=== PATIENT | male | born 1955 | race Caucasian/White ===

== ENCOUNTER 2017-01-29 19:24 | Emergency (ER) | payer MEDICARE, OTHER ==
[2017-01-29] MEDS ORDERED: Cyclobenzaprine 10 MG Tab PO ONE (19:25)
[2017-01-29] MEDS ORDERED: Acetaminophen/HYDROcodone 325-5 MG Tab PO ONE (19:25)
[2017-01-29 19:27] VITALS: BP 122/85
[2017-01-29] MEDS ORDERED: Ketorolac 60 MG/2 ML SDV IM ONE (19:27)
--- NOTE | 2017-01-29 19:37 | EDM.PDOC ---
ED HPI GENERAL MEDICAL PROBLEM - General Chief Complaint: Back Pain or Injury Stated Complaint: back injury from falling on ice Time Seen by Provider: 01/29/17 19:24 Source of Information: Reports: Patient History Limitations: Reports: No Limitations - History of Present Illness INITIAL COMMENTS - FREE TEXT/NARRATIVE: Rajendra is a 62 yo male who presents to the ER with complaints of left sided back spasms after falling. He states around 3:30 this afternoon he slipped on the ice and landed on his back. States he never lost consciousness and was able to get up on his own power. Admits his back started to tighten up and has been trying to ice with minimal to no relief. States he did take two tablets of Tylenol earlier with no relief. Duration: Constant Location: Reports: Back Quality: Reports: Sharp, Stabbing Severity: Mild Improves with: Reports: Rest Worsens with: Reports: Movement Associated Symptoms: Reports: No Other Symptoms Treatments CHEMIST PHYSICAL: Reports: Acetaminophen, Cold Therapy Left Lower Back Pain Score (Numeric/FACES): 10 - Related Data Allergies Allergy/AdvReac Type Severity Reaction Status Date / Time Penicillins Allergy Cannot Verified 01/29/17 19:28 Remember Sulfa (Sulfonamide Allergy Itching Verified 01/29/17 19:28 Antibiotics) Home Meds: Home Meds Albuterol [IJD: Ventolin HFA] 1 - 2 puff INH Q6H PRN 10/02/15 [History] Citalopram [Celexa] 20 mg PO DAILY 10/02/15 [History] Fenofibrate [Fenofibrate] 160 mg PO DAILY 10/02/15 [History] Levothyroxine Sodium 137 mcg PO DAILY 10/02/15 [History] atorvaSTATin Calcium [Atorvastatin Calcium] 40 mg PO DAILY 10/02/15 [History] Past Medical History HEENT History: Reports: None Cardiovascular History: Reports: High Cholesterol, Hypertension Respiratory History: Reports: COPD, SOB Gastrointestinal History: Reports: None Neurological History: Reports: None Psychiatric History: Reports: Anxiety, Depression Endocrine/Metabolic History: Reports: None Hematologic History: Reports: None - Past Surgical History Musculoskeletal Surgical History: Reports: Carpal Tunnel, Shoulder Surgery, Other (See Below) Social & Family History - Tobacco Use Smoking Status *Q: Current Every Day Smoker Years of Tobacco use: 43 Packs/Tins Daily: 2 - Caffeine Use Caffeine Use: Reports: Coffee - Recreational Drug Use Recreational Drug Use: No - Living Situation & Occupation Living situation: Reports: Single Occupation: Disabled ED ROS GENERAL - Review of Systems Review Of Systems: ROS reveals no pertinent complaints other than HPI. Constitutional: Reports: No Symptoms HEENT: Reports: No Symptoms Respiratory: Reports: Other (left posterior rib pain). Denies: Shortness of Breath GI/Abdominal: Reports: No Symptoms : Reports: No Symptoms Musculoskeletal: Reports: Back Pain, Muscle Pain, Muscle Stiffness Neurological: Reports: No Symptoms Psychiatric: Reports: No Symptoms ED EXAM,LOWER BACK PAIN/INJURY - Physical Exam Exam: See Below Exam Limited By: No Limitations General Appearance: Alert, Mild Distress Throat/Mouth: Normal Inspection, Normal Voice, No Airway Compromise Head: Atraumatic, Normocephalic Neck: Normal Inspection, Full Range of Motion Respiratory/Chest: No Respiratory Distress, Lungs Clear, Normal Breath Sounds, No Accessory Muscle Use, Chest Non-Tender Cardiovascular: Regular Rate, Rhythm, No Murmur GI/Abdominal: Normal Bowel Sounds, Soft, Non-Tender, No Organomegaly, No Distention Back Exam: Decreased Range of Motion (d/t discomfort), Muscle Spasm. No: Vertebral Tenderness Extremities: Normal Range of Motion Neurological: Alert, Normal Mood/Affect, Normal Gait, Normal Reflexes, No Motor/ Sensory Deficits Psychiatric: Normal Affect, Normal Mood Skin Exam: Warm, Dry, Intact, Normal Color, No Rash. No: Ecchymosis, Petechiae Course - Vital Signs Last Recorded V/S: Last Vital Signs Temp 97.5 F 01/29/17 19:24 Pulse 72 01/29/17 19:24 Resp 20 01/29/17 19:24 BP 122/85 01/29/17 19:24 Pulse Ox 96 01/29/17 19:24 - Orders/Labs/Meds Orders: Active Orders 24 hr Category Date Time Status Ribs 2V w Chest Lt [CR] Stat Exams 01/29/17 19:28 Ordered Thoracolumbar 2V [CR] Stat Exams 01/29/17 19:28 Ordered Meds: Medications Discontinued Medications Generic Name Dose Route Start Last Admin Trade Name Freq PRN Reason Stop Dose Admin Hydrocodone Bitart/Acetaminophen 2 packet 01/29/17 19:45 Take Home: Acetaminophen/Hydrocod, 2 Tab Pack PO 01/29/17 19:46 ONETIME ONE Cyclobenzaprine HCl 1 packet 01/29/17 19:45 Take Home: Cyclobenzaprine 10 Mg, 4 Tab Pack PO 01/29/17 19:46 ONETIME ONE Ketorolac Tromethamine 60 mg 01/29/17 19:27 01/29/17 19:37 Toradol IM 01/29/17 19:28 60 mg ONETIME ONE Administration Orphenadrine Citrate 60 mg 01/29/17 19:27 01/29/17 19:38 Norflex IM 01/29/17 19:28 60 mg NOW STA Administration Departure - Departure Time of Disposition: 20:17 Disposition: Home, Self-Care 01 Clinical Impression: Back muscle spasm Strain of mid-back Qualifiers: Encounter type: initial encounter Qualified Code(s): S29.012A - Strain of muscle and tendon of back wall of thorax, initial encounter - Discharge Information Instructions: Muscle Cramps and Spasms, [id number], Back Pain, Adult, Easy-to -Read Forms: ED Department Discharge Additional Instructions: 1) X-rays showed no sign of fracture 2) [place] 5/325 - 1 tablet every 6-8 hours as needed for pain, qty of 4 given... need to see primary provider if pain persists 3) Flexeril 10mg - 1 tablet every 8 hours as needed for muscle spasms 4) Advise using ibuprofen for discomfort and only taking [place] for break thru pain/bedtime 5) If any bowel or bladder dysfunction, advise returning to ER immediately or uncontrollable pain 6) Continue to ice, 20 minutes at a time, 4-6 times a day 7) Physical therapy referral for further evaluation and treatment. - Problem List & Annotations (1) Back muscle spasm SNOMED Code(s): 567227825 Code(s): M62.830 - MUSCLE SPASM OF BACK Status: Acute (2) Strain of mid-back SNOMED Code(s): 82892090 Code(s): S29.012A - STRAIN OF MUSCLE AND TENDON OF BACK WALL OF THORAX, INIT Status: Acute Qualifiers: Encounter type: initial encounter Qualified Code(s): S29.012A - Strain of muscle and tendon of back wall of thorax, initial encounter - Problem List Review Problem List Initiated/Reviewed/Updated: Yes - My Orders Last 24 Hours: My Active Orders 01/29/17 19:28 Ribs 2V w Chest Lt [CR] Stat Thoracolumbar 2V [CR] Stat - Assessment/Plan Last 24 Hours: My Active Orders 01/29/17 19:28 Ribs 2V w Chest Lt [CR] Stat Thoracolumbar 2V [CR] Stat
[2017-01-29] MEDS ORDERED: Take Home: Cyclobenzaprine 10 MG Tab, 4 Tab Pack PO ONE (19:45)
[2017-01-29] MEDS ORDERED: Take Home: Acetaminophen/HYDROcodone 325-5 MG, 2 Tab Pack PO ONE (19:45)
== END 2017-01-29 20:27 | disposition home or self-care (01) ==
LOC: CC.ED 19:24
DX: S29.012A Strain of muscle and tendon of back wall of thorax, initial encounter (principal); I10 Essential (primary) hypertension; E78.00 Pure hypercholesterolemia, unspecified; F32.9 Major depressive disorder, single episode, unspecified; F17.210 Nicotine dependence, cigarettes, uncomplicated; Z79.899 Other long term (current) drug therapy; Z88.0 Allergy status to penicillin; Z88.2 Allergy status to sulfonamides; W00.0XXA Fall on same level due to ice and snow, initial encounter
CPT/HCPCS: 71101-LT; 72080; 96372; 99283; A9270-GY; J1885; J2360

== ENCOUNTER → 2019-04-03 | Day surgery (SDC) | payer MEDICARE, OTHER ==
[~2019-04-03] MED LIST: Lactated Ringers 1,000 ML IV SCH; Phenylephrine 1% 10 MG/ML SDV IV ONE; Propofol 200 MG/20 ML SDV IV ONE
[2019-04-03 09:28] VITALS: BP 110/62; PULSE 59
--- NOTE | 2019-04-03 10:04 | OR ---
DATE OF OPERATION: 04/03/2019 PREOPERATIVE DIAGNOSIS: 1. FAMILY HISTORY OF COLON CANCER. 2. HISTORY OF POLYPS. POSTOPERATIVE DIAGNOSIS: 1. FAMILY HISTORY OF COLON CANCER. 2. HISTORY OF POLYPS. SURGEON: Wilfredo Potter MD PROCEDURE: DIAGNOSTIC COLONOSCOPY WITH SNARE AND FORCEPS POLYP REMOVAL X12. ANESTHESIA: MAC. COMPLICATIONS: None. SPECIMEN: Total of 12 tubular adenomas with 2 villous lesions over a centimeter, all others less than 0.5 cm in size. FINDINGS: 1. Full-length colonoscopy. 2. Multiple colon polyps numbering 12 with 2 larger villous lesions, other 10 small tubular adenomas. RECOMMENDATIONS: Recommend followup colonoscopy in 1 year given the size of these 2 other villous lesions to ensure no regrowth. INDICATIONS: The patient has history of colon cancer in the family. It has been over 10 years since his last colonoscopy, and at that time, he did have polyps removed which he maintains were benign. DESCRIPTION OF PROCEDURE: The patient was prepped and draped, placed in the left lateral decubitus position. A lubricated Olympus colonoscope was inserted and with ease advanced to the cecum. We were able to directly visualize the ileocecal valve and appendiceal orifice. The bowel prep was fine. Upon withdrawal of the scope right in the cecal pouch, the patient had a small, less than 0.5 cm tubular adenoma removed in its entirety with 2 forceps biopsies. Just outside the cecal pouch and deep in the haustral fold was a larger villous adenoma approximately a cm in size. We were able to remove this in its entirety with a snare and suctioned into polyp trap #1 without difficulty. The mid ascending colon had 3 smaller tubular adenomas, 2 of these were about 2 or 3 mm, each were removed with the forceps. One was larger, approximately 0.5 cm, and we removed that with a snare without any difficulty and suctioned into polyp trap #2. In the proximal transverse colon, the patient had another large villous adenoma. We removed it in 3 separate portions with a snare, was well over cm in size, we were able to suction all 3 into polyp trap without difficulty. In the splenic flexure, the patient had another small sessile polyp about 2 mm, removed with a forceps. The rectosigmoid junction had 2 small sessile polyps as well, each removed with a forceps. In the rectal vault, the patient had a cluster of small little hyperplastic polyps, 2 of these were about 3 or 4 mm, 1 was about 2 mm, we removed all 3 of those with forceps. There may have been a couple of smaller ones, but with air insufflation, they essentially disappeared and needs to be monitored. Retroflexion of the scope in the rectum showed no anal lesions. Throughout the length of the colon, there were no signs of colitis, vascular abnormalities, or signs of diverticula. The scope was reintroduced to approximately the splenic flexure and air was suctioned without complication. Upon withdrawal, the patient was stable in the recovery room. LESLEY/SUSAN /[id number]
== END ==
LOC: CC.SDS 07:01
PROVIDERS: ATTEND Family Medicine
DX: Z12.11 Encounter for screening for malignant neoplasm of colon (principal); D12.0 Benign neoplasm of cecum; D12.2 Benign neoplasm of ascending colon; D12.3 Benign neoplasm of transverse colon; K62.1 Rectal polyp; K63.5 Polyp of colon; E78.00 Pure hypercholesterolemia, unspecified; E03.9 Hypothyroidism, unspecified; J44.1 Chronic obstructive pulmonary disease with (acute) exacerbation; F41.9 Anxiety disorder, unspecified; F32.9 Major depressive disorder, single episode, unspecified; F17.210 Nicotine dependence, cigarettes, uncomplicated; Z88.0 Allergy status to penicillin; Z88.2 Allergy status to sulfonamides; Z79.51 Long term (current) use of inhaled steroids; Z79.899 Other long term (current) drug therapy; Z86.010 Personal history of colon polyps; Z80.0 Family history of malignant neoplasm of digestive organs
CPT/HCPCS: 45385; J2370; J2704; J7120

== ENCOUNTER → 2020-06-17 | Day surgery (SDC) | payer MEDICARE, OTHER ==
[~2020-06-17] MED LIST changes: -Phenylephrine 1% 10 MG/ML SDV IV ONE; -Propofol 200 MG/20 ML SDV IV ONE
[2020-06-17 12:07] VITALS: BP 112/77; PULSE 59
--- NOTE | 2020-06-17 14:50 | OR ---
DATE OF OPERATION: 06/17/2020 PREOPERATIVE DIAGNOSIS: HISTORY OF POLYPS. POSTOPERATIVE DIAGNOSIS: HISTORY OF POLYPS. SURGEON: Wilfredo Potter MD PROCEDURE: FULL-LENGTH COLONOSCOPY WITH SNARE POLYPECTOMY X2, COLON BIOPSY X1. ANESTHESIA: MAC. COMPLICATIONS: None. SPECIMEN: 1. Hepatic flexure biopsy x1. 2. Two tubular adenomas, each less than 0.5 cm. FINDINGS: 1. Full-length colonoscopy. 2. Small lipoma, hepatic flexure. 3. Tubular adenoma, approximately 5 mm, proximal sigmoid colon. 4. Small likely hyperplastic 3 mm polyp, rectosigmoid junction. RECOMMENDATIONS: Followup colonoscopy in 3 years. INDICATIONS: The patient 1 year ago had 12 polyps removed from his colon. We recommended a 1-year followup scope. DESCRIPTION OF PROCEDURE: The patient was prepped and draped, placed in the left lateral decubitus position. A lubricated Olympus colonoscope was inserted and easily advanced to the cecum. We were able to directly visualize the ileocecal valve and appendiceal orifice. The bowel prep was adequate. Upon withdrawal of the scope, cecum and ascending colon appeared benign. Right at the hepatic flexure, the patient had a typical submucosal lipoma. It was biopsied for confirmation. The rest of the transverse and descending colons were unremarkable. In the proximal sigmoid colon, the patient had a small 4 to 5 mm tubular adenoma easily removed with a snare and suctioned into polyp trap #1. There were no other lesions in the sigmoid. No other polyps, masses, ulceration, or bleeding sites. No vascular abnormalities or signs of colitis. There were no diverticula. At the rectosigmoid junction, the patient had a small flat sessile polyp, likely hyperplastic, measuring 3 mm, removed in its entirety with a forceps. The rectal vault was benign. Retroflexion showed no perianal lesions. Air was suctioned and the scope removed without complication. LESLEY/SUSAN /[id number]
== END ==
LOC: CC.SDS 10:22
PROVIDERS: ATTEND Family Medicine
DX: D12.5 Benign neoplasm of sigmoid colon (principal); K62.1 Rectal polyp; K63.89 Other specified diseases of intestine; E78.00 Pure hypercholesterolemia, unspecified; E03.9 Hypothyroidism, unspecified; N52.9 Male erectile dysfunction, unspecified; F17.210 Nicotine dependence, cigarettes, uncomplicated; J44.9 Chronic obstructive pulmonary disease, unspecified; Z88.0 Allergy status to penicillin; Z88.2 Allergy status to sulfonamides; Z79.899 Other long term (current) drug therapy; Z79.890 Hormone replacement therapy; Z86.010 Personal history of colon polyps
CPT/HCPCS: 88305; J7120

== ENCOUNTER → 2023-02-07 | Day surgery (SDC) | payer MEDICARE ==
[~2023-02-07] MED LIST changes: +Brimonidine 0.2% Ophth Soln 5 ML Bottle EYELF ONE; +Lidocaine 1% 30 ML SDV INJECT ONE; +MOXIFLOXACIN PF in BSS 1 MG/ML VIAL ICORN ONE; +Midazolam 1 MG/ML 2 ML SDV ONE; +Povidone-Iodine 5% Sterile Ophth Soln 30 ML Bottle EYELF ONE; +Tetracaine HCl/PF 0.5% 4 ML Bottle EYELF ONE; +fentaNYL 50 MCG/ML SDV ONE
[2023-02-07 09:41] VITALS: BP 115/72; PULSE 60
== END ==
LOC: CC.SDS 07:00
DX: H25.812 Combined forms of age-related cataract, left eye (principal); F41.9 Anxiety disorder, unspecified; J44.9 Chronic obstructive pulmonary disease, unspecified; F32.A Depression, unspecified; E78.00 Pure hypercholesterolemia, unspecified; E03.9 Hypothyroidism, unspecified; Z79.899 Other long term (current) drug therapy; F17.210 Nicotine dependence, cigarettes, uncomplicated; Z79.890 Hormone replacement therapy; Z88.2 Allergy status to sulfonamides; Z88.0 Allergy status to penicillin
CPT/HCPCS: J2250; J3010; J3490; J7120

== ENCOUNTER → 2023-03-06 | Day surgery (SDC) | payer MEDICARE ==
[~2023-03-06] MED LIST changes: -Brimonidine 0.2% Ophth Soln 5 ML Bottle EYELF ONE; +Brimonidine 0.2% Ophth Soln 5 ML Bottle EYERT ONE; -Lidocaine 1% 30 ML SDV INJECT ONE; +Lidocaine 1% 5 ML VIAL IARTIC ONE; +Moxifloxacin 0.5% Ophth Soln 3 ML Bottle EYERT ONE; -Povidone-Iodine 5% Sterile Ophth Soln 30 ML Bottle EYELF ONE; +Povidone-Iodine 5% Sterile Ophth Soln 30 ML Bottle EYERT ONE; -Tetracaine HCl/PF 0.5% 4 ML Bottle EYELF ONE; +Tetracaine HCl/PF 0.5% 4 ML Bottle EYERT ONE
[2023-03-06] MEDS: Cyclopentolat/Tropic/Phenyleph 1 ML Ophth Drop SDV EYERT ONE ×2 (06:20→06:35)
[2023-03-06 09:22] VITALS: PULSE 57
[2023-03-06 09:23] VITALS: BP 123/64
== END ==
LOC: CC.SDS 06:04
PROVIDERS: ATTEND Ophthalmology
DX: H25.813 Combined forms of age-related cataract, bilateral (principal); H21.81 Floppy iris syndrome; H26.9 Unspecified cataract; F41.9 Anxiety disorder, unspecified; F17.210 Nicotine dependence, cigarettes, uncomplicated; E78.00 Pure hypercholesterolemia, unspecified; E03.9 Hypothyroidism, unspecified; J44.9 Chronic obstructive pulmonary disease, unspecified; M54.50 Low back pain, unspecified; Z88.0 Allergy status to penicillin; Z79.899 Other long term (current) drug therapy
CPT/HCPCS: J2250; J3010; J3490; J7120

== ENCOUNTER 2024-01-15 08:22 | Day surgery (SDC) | payer MEDICARE ==
[2024-01-15] MEDS: Lactated Ringers 1,000 ML IV SCH (08:43)
[2024-01-15] MEDS ORDERED: fentaNYL 50 MCG/ML SDV ONE (08:55)
[2024-01-15] MEDS ORDERED: Ketamine 200 MG/20 ML MDV ONE (08:55)
[2024-01-15] MEDS ORDERED: Flumazenil 0.1 MG/ML 5 ML MDV ONE (08:55)
[2024-01-15] MEDS ORDERED: Midazolam 1 MG/ML 2 ML SDV ONE (08:55)
[2024-01-15] MEDS ORDERED: Propofol 200 MG/20 ML SDV ONE (08:55)
[2024-01-15 10:46] VITALS: BP 118/78; PULSE 60
== END 2024-01-15 10:25 | disposition home or self-care (01) ==
LOC: CC.SDS 08:22
PROVIDERS: ATTEND Family Medicine
DX: Z12.11 Encounter for screening for malignant neoplasm of colon (principal); D12.2 Benign neoplasm of ascending colon; D12.3 Benign neoplasm of transverse colon; D21.5 Benign neoplasm of connective and other soft tissue of pelvis; K62.1 Rectal polyp; Z86.0100 Personal history of colon polyps, unspecified; J44.9 Chronic obstructive pulmonary disease, unspecified; E78.00 Pure hypercholesterolemia, unspecified; E03.9 Hypothyroidism, unspecified; F32.A Depression, unspecified; Z79.899 Other long term (current) drug therapy; Z88.0 Allergy status to penicillin; Z88.2 Allergy status to sulfonamides
CPT/HCPCS: 00811; 88305; J2250; J2704; J3010; J3490; J7120